=== PATIENT | male | born 1980 | race Two or more races ===

== ENCOUNTER 2017-11-14 09:40 | Day surgery (SDC) | payer OTHER ==
[2017-11-13 09:58] LABS: BASOPHILS # (AUTO) 0.03 x10^3/uL (0-0.1); BASOPHILS % (AUTO) 0 % (0-1); EOSINOPHILS # (AUTO) 0.18 x10^3/uL (0-0.4); EOSINOPHILS % (AUTO) 2 % (1-7); LYMPHOCYTES # (AUTO) 2.57 x10^3/uL (1-3.4); LYMPHOCYTES % (AUTO) 29 % (22-44); MD NO; MEAN CORPUSCULAR HEMOGLOBIN 29.1 pg (27.5-34.5); MEAN CORPUSCULAR HGB CONC 33.5 g/dL (33.2-36.2); MEAN CORPUSCULAR VOLUME 86.7 fL (81-97); MEAN PLATELET VOLUME 9.4 fL (7.4-10.4); MONOCYTES # (AUTO) 0.54 x10^3/uL (0.2-0.8); MONOCYTES % (AUTO) 6 % (2-9); NEUTROPHILS # (AUTO) 5.63 x10^3/uL (1.8-6.8); NEUTROPHILS % (AUTO) 63 % (42-75); PLATELET COUNT 236 x10^3/uL (130-400); RED BLOOD COUNT 5.31 x10^6/uL (4.38-5.82); RED CELL DISTRIBUTION WIDTH 13.1 % (9.4-14.8)
[2017-11-13 10:06] LABS: ALBUMIN 3.9 g/dL (3.4-5.0); ANION GAP 8 mmol/L (5-15); CALCIUM 8.8 mg/dL (8.5-10.1); CHLORIDE 105 mmol/L (98-107)
[2017-11-13 10:13] LABS: ALANINE AMINOTRANSFERASE 35 U/L (12-78); ALKALINE PHOSPHATASE 74 U/L (45-117); BILIRUBIN,TOTAL 0.4 mg/dL (0.2-1.0); CREATININE 0.82 mg/dL (0.7-1.3); INTERNATIONAL NORMALIZED RATIO 0.97 (0.93-1.1); PROTHROMBIN TIME 10.1 Seconds (9.6-11.5); TOTAL PROTEIN 8.1 g/dL (6.4-8.2)
[~2017-11-14] VITALS: Ht 170.2 cm; Wt 78.9 kg
[~2017-11-14 09:40] MED LIST: BUPIVACAINE/PF-EPI 0.5% 1:200K ONE; None at this Time
[2017-11-14 10:44] VITALS: BP 121/69
[2017-11-14] MEDS ORDERED: LACTATED RINGERS 1,000 ML IV SCH (11:00)
[2017-11-14] MEDS ORDERED: MIDAZOLAM 1 MG/ML, 2ML ONE (11:22)
[2017-11-14] MEDS ORDERED: FENTANYL PF 250 MCG/5ML ONE (11:22)
[2017-11-14] MEDS ORDERED: LIDOCAINE-MPF 2% ,5ML ONE (11:23)
[2017-11-14] MEDS ORDERED: PROPOFOL 10 MG/ML, 20ML ONE (11:23)
[2017-11-14] MEDS ORDERED: CEFAZOLIN 1,000 MG ONE ×2 (11:24)
[2017-11-14] MEDS ORDERED: WATER-INJECTION,STERILE 10 ML IV ONE (11:24)
[2017-11-14] MEDS ORDERED: DEXAMETHASONE 4 MG/ML, 1ML ONE ×2 (11:25)
[2017-11-14] MEDS ORDERED: GABAPENTIN 300 MG CAPSULE PO ONE (11:30)
[2017-11-14] MEDS ORDERED: ACETAMINOPHEN 500 MG TABLET PO ONE (11:30)
[2017-11-14] MEDS ORDERED: BUPIVACAINE/PF-EPI 0.5% 1:200K INFIL ONE (12:19)
[2017-11-14] MEDS ORDERED: ONDANSETRON 2MG/ML, 2ML ONE ×2 (12:33)
[2017-11-14] MEDS ORDERED: KETOROLAC 30 MG/1 ML ONE (12:33)
[2017-11-14] MEDS ORDERED: HALOPERIDOL 5 MG/ML IV PRN (13:00)
[2017-11-14] MEDS ORDERED: ONDANSETRON 2MG/ML, 2ML IV PRN (13:00)
[2017-11-14] MEDS ORDERED: HYDROmorphone 1 MG/ML, 1ML IV PRN (13:00)
[2017-11-14] MEDS ORDERED: LABETALOL 5MG/ML, 20ML IV PRN (13:00)
[2017-11-14] MEDS ORDERED: ACETAMINOPHEN 325 MG TABLET PO PRN (13:00)
[2017-11-14] MEDS ORDERED: OXYcodone 5 MG/5 ML ORAL.SOL UDC PO PRN (13:00)
[2017-11-14] MEDS ORDERED: FENTANYL PF 100 MCG/2ML IV PRN (13:00)
[2017-11-14] MEDS ORDERED: MEPERIDINE/PF 25MG/0.5ML IVPush PRN (13:00)
[2017-11-14] MEDS ORDERED: OXYcodone 5 MG/5 ML ORAL.SOL UDC ONE (13:22)
[2017-11-14] MEDS ORDERED: ACETAMINOPHEN 650 MG/20.3 ML UDC ONE (13:22)
== END 2017-11-14 16:00 ==
LOC: OUT 09:40
PROVIDERS: ATTEND Surgery
DX: K40.90 Unilateral inguinal hernia, without obstruction or gangrene, not specified as recurrent (principal); Z98.890 Other specified postprocedural states
CPT/HCPCS: 36415; 49505; 80053; 85025; 85610; C1781; J0690; J1100; J1885; J2250; J2405; J2704; J3010; J3490; J7120